=== PATIENT | female | born 1955 | race Caucasian/White ===

== ENCOUNTER 2017-10-30 16:49 | Emergency (ER) | payer MEDICAID ==
[~2017-10-30] VITALS: Ht 162.6 cm; Wt 72.6 kg
[2017-10-30 17:04] VITALS: BP_SYST 136
[2017-10-30] MEDS ORDERED: KETOROLAC TROMETHAMINE 30 MG VIAL IM ONE (17:15)
[2017-10-30 18:05] VITALS: BP_SYST 129
== END 2017-10-30 18:05 | disposition home or self-care (01) ==
LOC: SED 16:49
DX: G89.29 Other chronic pain (principal); M25.511 Pain in right shoulder; I10 Essential (primary) hypertension
CPT/HCPCS: 73030; 93005; 96372; 99284; J1885

== ENCOUNTER 2019-01-01 19:40 | Emergency (ER) | payer MEDICAID ==
[~2019-01-01] VITALS: Ht 162.6 cm; Wt 72.6 kg
[2019-01-01 19:46] VITALS: BP_SYST 155
--- NOTE | 2019-01-01 19:51 | NUR ---
Patient to ER bed 04 for evaluation. Side rails up. Report given to [facility].
--- NOTE | 2019-01-01 19:55 | NUR ---
ER AMANDA Tena at bedside examining patient.
[2019-01-01] MEDS ORDERED: IBUPROFEN 600 MG TABLET PO ONE (20:00)
--- NOTE | 2019-01-01 20:00 | NUR ---
Pt complains of pain to right thumb. Pt states she has a wart on thumb for months but has gotten worse today. Pt denies fever, N/V. No other injuries/complaints per patient or noted.
[2019-01-01 20:54] VITALS: BP_SYST 147
--- NOTE | 2019-01-01 20:54 | NUR ---
Patient given written and verbal discharge instructions and verbalizes understanding. ER MD discussed with patient the results and treatment provided. Patient in stable condition. ID arm band removed. Rx of Motrin and Keflex given. Patient educated on pain management and to follow up with PMD. Pain Scale 0. Opportunity for questions provided and answered. Medication side effect fact sheet provided.
== END 2019-01-01 20:54 | disposition home or self-care (01) ==
LOC: SED 19:40
DX: L03.011 Cellulitis of right finger (principal); B07.8 Other viral warts; I10 Essential (primary) hypertension; F17.210 Nicotine dependence, cigarettes, uncomplicated; Z71.6 Tobacco abuse counseling
CPT/HCPCS: 73140-TC; 99283

== ENCOUNTER 2019-06-17 13:08 | Emergency (ER) | payer MEDICAID ==
[~2019-06-17] VITALS: Ht 162.6 cm; Wt 74.8 kg
[2019-06-17 13:40] VITALS: BP_SYST 165
--- NOTE | 2019-06-17 13:44 | NUR ---
Patient triaged and placed in waiting room. VSS and patient appears in no acute distress at this time. Accompanied by friend, awaiting available bed, and MD notified of need for MSE.
[2019-06-17] MEDS ORDERED: DIPHENHYDRAMINE INJ 50 MG/ML VIAL IM ONE (15:15)
[2019-06-17] MEDS ORDERED: KETOROLAC TROMETHAMINE 60 MG/2 ML VIAL IM ONE (15:15)
[2019-06-17] MEDS ORDERED: MORPHINE SULFATE 10 MG/ML VIAL IM ONE (15:15)
--- NOTE | 2019-06-17 15:31 | NUR ---
Patient to [facility] to [facility] for evaluation.
--- NOTE | 2019-06-17 15:35 | NUR ---
Patient brought in complaining of sharp pain to left hip radiating down left thigh. Denies any trauma. Pain /. No other complaints/injuries per patient or as noted. Will continue to monitor.
--- NOTE | 2019-06-17 15:37 | NUR ---
NASH Tena examining patient.
[2019-06-17 16:52] VITALS: BP_SYST 152
--- NOTE | 2019-06-17 16:52 | NUR ---
Patient given written and verbal discharge instructions and verbalizes understanding. ER MD discussed with patient the results and treatment provided. Patient in stable condition. ID arm band removed. Rx of [place], Motrin and prednisone given. Patient educated on pain management and to follow up with PMD. Pain Scale 0/10 Opportunity for questions provided and answered. Medication side effect fact sheet provided.
== END 2019-06-17 16:52 | disposition home or self-care (01) ==
LOC: SED 13:08
DX: M54.32 Sciatica, left side (principal); I10 Essential (primary) hypertension; F12.90 Cannabis use, unspecified, uncomplicated; F17.210 Nicotine dependence, cigarettes, uncomplicated
CPT/HCPCS: 96372; 99284; J1200; J1885; J2270